=== PATIENT | male | born 1980 | race American Indian/Alaskan Native ===

== ENCOUNTER 2022-09-23 10:34 | Emergency (ER) | payer SELFPAY ==
[2022-09-23] MEDS ORDERED: Sodium Chloride 0.9% 10 ML Syringe FLUSH PRN (11:00)
[2022-09-23] MEDS ORDERED: Iopamidol 755 Mg/ML 100 ML Bottle IVPUSH ONE ×2 (11:48→11:59)
[2022-09-23] MEDS ORDERED: Sodium Chloride 0.9% 10 ML Syringe FLUSH ONE (11:48)
== END 2022-09-23 13:05 | disposition home or self-care (01) ==
LOC: JD.ED 10:34
DX: M79.602 Pain in left arm (principal); R06.02 Shortness of breath; R06.01 Orthopnea; F17.210 Nicotine dependence, cigarettes, uncomplicated; E66.9 Obesity, unspecified; Z68.43 Body mass index [BMI] 50.0-59.9, adult
CPT/HCPCS: 36415; 71046; 71275; 80053; 84443; 84484; 85025; 85379; 93005; 99285; J3490; Q9967; 93010; 99284